=== PATIENT | male | born 1985 ===

== ENCOUNTER 2020-03-05 13:15 | Emergency (ER) | payer OTHER ==
[~2020-03-05] VITALS: Ht 172.7 cm; Wt 97.5 kg
[2020-03-05] MEDS ORDERED: MOXIFLOXACIN HCL PO (14:06)
== END 2020-03-05 18:09 | disposition home or self-care (01) ==
LOC: ER 13:15 → EDBD 13:42 → ER 18:09
DX: L02.01 Cutaneous abscess of face (principal); B96.89 Other specified bacterial agents as the cause of diseases classified elsewhere